=== PATIENT | male | born 1970 | race Caucasian/White ===

== ENCOUNTER 2018-12-19 07:15 | Emergency (ER) | payer BC ==
[~2018-12-19] VITALS: Ht 160 cm; Wt 79.4 kg
[2018-12-19 07:15] VITALS: BP_SYST 116
[2018-12-19] MEDS ORDERED: IPRATROPIUM/ALBUTEROL SULFATE 3 ML AMPUL.NEB (DUONEB) INH ONE (08:00)
[2018-12-19] MEDS ORDERED: cefTRIAXone 1 GM VIAL IM ONE (09:00)
[2018-12-19] MEDS ORDERED: LIDOCAINE 1%, 20 ML MDV 20 ML ONE (09:09)
[2018-12-19 09:26] VITALS: BP_SYST 115
== END 2018-12-19 09:25 | disposition home or self-care (01) ==
LOC: SED 07:15
DX: J18.1 Lobar pneumonia, unspecified organism (principal); M54.5 Low back pain
CPT/HCPCS: 71046; 72100; 94640; 96372; 99283; J0696; J2001; J7620